=== PATIENT | male | born 1940 | race Caucasian/White ===

== ENCOUNTER 2018-05-10 05:19 | Inpatient (IN) | payer OTHER ==
[2018-05-10] VITALS (27 sets, daily range): BP systolic 89–180; BP diastolic 34–108
[~2018-05-10] VITALS: Ht 175.2 cm; Wt 80.5 kg
--- NOTE | ~2018-05-10 | EKG ---
[place], [place] ELECTROCARDIOGRAM REPORT NAME: KAYLYNN MANZANARES UNIT #: [id number] ROOM: [facility] DOCTOR: FAHEEM DRAFT REPORT BIRTHDATE: [birth year] [facility] Test Date: 2018-05-10 Test Time: 08:29:03 Pat Name: KAYLYNN MANZANARES Department: Room: [facility] Gender: M Charge Accounts Audit Clerk: Erika Cowan : 1940 Requested By: HARMEET FERRIS Order Number: [id number] Reading MD: David Mills MD Measurements Intervals [place] Rate: 63 P: 51 MA: 174 QRS: -23 QRSD: 85 T: 2 QT: 440 QTc: 451 Interpretive Statements Sinus rhythm Borderline left axis deviation Borderline T abnormalities, inferior leads No previous ECG available for comparison Electronically Signed On 05-10-2018 16:06:34 PST by David Mills MD CM:EKGRPT:ELECTROCARDIOGRAM REPORT [id number] HARMEET MAYEN DRAFT REPORT HARMEET FERRIS MD
--- NOTE | ~2018-05-10 | EKG ---
[place], [place] ELECTROCARDIOGRAM REPORT NAME: KAYLYNN MANZANARES UNIT #: [id number] ROOM: [facility] DOCTOR: FAHEEM DRAFT REPORT BIRTHDATE: [birth year] [facility] Test Date: 2018-05-10 Test Time: 05:20:50 Pat Name: KAYLYNN MANZANARES Department: Room: [facility] Gender: M Emergency Operator: ISH : 1940 Requested By: HARMEET FERRIS Order Number: [id number] Reading MD: Reid Shanks MD Measurements Intervals [place] Rate: 80 P: 81 IA: 167 QRS: -28 QRSD: 99 T: 73 QT: 418 QTc: 483 Interpretive Statements Sinus rhythm with sinus arrhythmia Probable left atrial enlargement Borderline left axis deviation Nonspecific ST-T changes Electronically Signed On 05-12-2018 21:12:18 PST by Reid Shanks MD CM:EKGRPT:ELECTROCARDIOGRAM REPORT 9 [id number] HARMEET FERRIS MD EPIPHANY DRAFT REPORT HARMEET FERRIS MD
--- NOTE | ~2018-05-10 | EKG ---
[place], [place] ELECTROCARDIOGRAM REPORT NAME: KAYLYNN MANZANARES UNIT #: [id number] ROOM: [facility] DOCTOR: FAHEEM DRAFT REPORT BIRTHDATE: [birth year] [facility] Test Date: 2018-05-10 Test Time: 15:50:35 Pat Name: KAYLYNN MANZANARES Department: Room: [place] [address] Gender: M Produce Runner: 18 : 1940 Requested By: MURPHY KAPOOR Order Number: [id number] Reading MD: Reid Shanks MD Measurements Intervals [place] Rate: 60 P: 46 WY: 164 QRS: -27 QRSD: 84 T: 8 QT: 441 QTc: 441 Interpretive Statements Sinus rhythm Borderline left axis deviation Borderline T abnormalities, lateral leads Compared to earlier ECG this date Lateral T-wave flattening is now present Electronically Signed On 05-12-2018 21:13:14 PST by Reid Shanks MD CM:EKGRPT:ELECTROCARDIOGRAM REPORT [id number] 12 MURPHY MAYEN DRAFT REPORT MURPHY KAPOOR MD
--- NOTE | ~2018-05-10 | EKG ---
[place], [place] ELECTROCARDIOGRAM REPORT NAME: KAYLYNN MANZANARES UNIT #: [id number] ROOM: [facility] DOCTOR: FAHEEM DRAFT REPORT BIRTHDATE: [birth year] [facility] Test Date: 2018-05-11 Test Time: 09:19:35 Pat Name: KAYLYNN MANZANARES Department: Room: [place] [address] Gender: M Director Strategic Planning: : 1940 Requested By: JACKIE LEONARD Order Number: [id number] Reading MD: Diogenes Keene MD Measurements Intervals [place] Rate: 60 P: 27 WY: 176 QRS: -24 QRSD: 85 T: 80 QT: 457 QTc: 457 Interpretive Statements Sinus rhythm Borderline left axis deviation Baseline wander in lead(s) II,III,aVF Compared to ECG 05/10/2018 11:27:17 No significant changes Electronically Signed On 05-13-2018 4:40:32 PST by Diogenes Keene MD CM:EKGRPT:ELECTROCARDIOGRAM REPORT [id number] JACKIE HUBBARD DRAFT REPORT JACKIE LEONARD DO
--- NOTE | ~2018-05-10 | EKG ---
[place], [place] ELECTROCARDIOGRAM REPORT NAME: KAYLYNN MANZANARES UNIT #: [id number] ROOM: [facility] DOCTOR: FAHEEM DRAFT REPORT BIRTHDATE: [birth year] [facility] Test Date: 2018-05-10 Test Time: 11:27:17 Pat Name: KAYLYNN MANZANARES Department: Room: [facility] Gender: M Caddymaster: Erika Cowan : 1940 Requested By: HARMEET FERRIS Order Number: [id number] Reading MD: David Mills MD Measurements Intervals [place] Rate: 69 P: 72 DE: 170 QRS: -26 QRSD: 89 T: 71 QT: 415 QTc: 445 Interpretive Statements Sinus rhythm Borderline left axis deviation Abnormal R-wave progression, late transition No previous ECG available for comparison Electronically Signed On 05-10-2018 16:07:36 PST by David Mills MD CM:EKGRPT:ELECTROCARDIOGRAM REPORT [id number] HARMEET MAYEN DRAFT REPORT HARMEET FERRIS MD
[~2018-05-10 05:19] MED LIST: HYDROCODONE BIT1 T11 PO; VITAMINS & MINE1 TAB PO
[2018-05-10 05:36] LABS: BASO # 0.1 10*3/uL (0.0-0.1); BASO % 0.9 % (0.0-1.0); EOS # 0.3 10*3/uL (0.0-0.4); EOS % 5.1 % (1.0-4.0); HEMOGLOBIN 14.2 g/dl (14.0-18.0); LYMPH # 1.8 10*3/uL (1.3-4.4); LYMPH % 27.4 % (27.0-41.0); MEAN CELL VOLUME 87.1 fl (80.0-94.0); MEAN CORPUSCULAR HGB 29.5 pg (27.0-31.0); MEAN CORPUSCULAR HGB CONC 33.8 g/dl (33.0-37.0); MEAN PLATELET VOLUME 9.5 fl (9.6-12.3); MONO # 0.8 10*3/uL (0.1-1.0); MONO % 11.6 % (3.0-9.0); NEUT # 3.5 10*3/uL (2.3-7.9); NEUT % 54.7 % (47.0-73.0); PLATELET COUNT AUTOMATED 226 10*3/uL (130-400); RED BLOOD COUNT 4.82 10*6/uL (4.50-5.90); WHITE BLOOD COUNT 6.5 10*3/uL (4.8-10.8)
[2018-05-10 05:46] LABS: ACT PARTIAL THROMBO TIME 22.4 SECONDS (20.8-31.5); INTERNATIONAL NORM RATIO 0.9 (2.0-3.5)
[2018-05-10 05:51] LABS: ALBUMIN 4.1 gm/dl (3.1-4.5); ALKALINE PHOSPHATASE 91 U/L (45-117); BUN 24 mg/dl (7-24); CHLORIDE 104 mmol/L (98-107); CREATININE 1.26 mg/dL (0.70-1.30); SGOT/AST 20 IU/L (3-35); SGPT/ALT 28 U/L (12-78); SODIUM 139 mmol/L (136-145); TOTAL PROTEIN 7.9 gm/dL (6.4-8.2)
[2018-05-10 05:52] LABS: TROPONIN I 0.031 ng/ml (<0.045)
[2018-05-10] MEDS ORDERED: FLOMAX0.4 MG PO (06:55)
--- NOTE | 2018-05-10 07:11 | NUR ---
A 77, admitted to ICCU, under the services of KAYLYNN Lakhani DO with a diagnosis of CHEST PAIN. Chief complaint is CHEST PAIN. Patient arrived via bed from ER. Monitor applied. Initial assessment completed. Vital signs taken and recorded. KAYLYNN LAKHANI DO notified of admission to the unit. Orders received. See assessment for past medical history, medications and allergies. Patient and/or family oriented to unit. [address] visitation policy reviewed. Clothing/patient valuable form completed. OC VASQUEZ
--- NOTE | 2018-05-10 08:44 | NUR ---
CALLED ANSWERING SERVICE REGARDING NEW PT CONSULT FOR DR VARNER. DR RAMIRES MARKETING COMMUNICATIONS LEADER. WAITING MARKETING COMMUNICATIONS LEADER BACK
--- NOTE | 2018-05-10 08:47 | NUR ---
DR RAMIRES CALLED AND I INFORMED HIM OF NEW PT CONSULT WELL CRITICAL ELEVATED TROPONIN 0.859. HE STATED HE WILL SEE PT THIS MORNING. NO NEW ORDERS.
--- NOTE | 2018-05-10 11:54 | NUR ---
CRITICAL LAB RECIEVED. TROPONIN 1.61. DR LEONARD NOTIFIED. WAITING YOUTH CARE WORKER BACK FROM DR. RAMIRES.
--- NOTE | 2018-05-10 12:00 | NUR ---
SPOKE TO DR RAMIRES REGARDING CRITICAL ELEVATED TROPONIN 1.61. I ALSO INFORMED HIM THAT PER DR MONCADA PT IS BEING STARTED ON A HEPARIN DRIP AND TRANSFERRED TO THE ICU. HE STATED HE WILL BE HERE WITHIN THE HOUR TO SEE THE PT.
--- NOTE | 2018-05-10 12:25 | NUR ---
RECEIVED PT FROM 5E VIA BED. PT AAOX3. RESP EASY. PT SLIGHTLY ANXIOUS AND TEARFUL. BP 176/80. HR 69 NSR POX 97% RA. PT C/O SLIGHT MIDSTERNAL HEAVINESS THAT INCREASES WITH PALPATION AND DEEP INSPIRATION. NO OTHER RADIATION OF HEAVINESS NOTED. IV HEPARIN GTT INFUSING PER ORDER. O2 2L NC APPLIED. PT UPDATED ON PLAN OF CARE. WILL CONTINUE TO MONITOR PT.
--- NOTE | 2018-05-10 12:40 | NUR ---
PT TAKEN TO THE ICU. REPORT GIVEN TO DESTINI SY
--- NOTE | 2018-05-10 13:50 | NUR ---
DR KAPOOR IN TO SEE PT. DR KAPOOR DID A BEDSIDE ECHO. IV NITRO GTT STARTED AT 10MCG PER ORDER. IV HEPARIN GTT CONTINUES.
--- NOTE | 2018-05-10 14:30 | NUR ---
IV ATIVAN GIVEN PER ORDER.
--- NOTE | 2018-05-10 15:00 | NUR ---
PT RESTING. EARLIER ATIVAN SEEMS EFFECTIVE FOR PT'S ANXIETY. PT FOR HEART CATH ON SATURDAY. PT'S QUESTIONS ANSWERED R/T PLAN OF CARE. I DID CALL PT'S SON, SARA, AND UPDATED HIM ON PT'S CONDITION AND PLAN OF CARE.
--- NOTE | 2018-05-10 16:02 | NUR ---
PT RESTING. VSS. HEPARIN AND NITRO GTT'S CONTINUE. PT DENIES COMPLAINTS OF CHEST PAIN OR PRESUURE AT THIS TIME. PT'S AT BEDSIDE. PT DECIDED HE WOULD GO TO THE [facility]. FOR HEART CATH ON SATURDAY. PT WOULD LIKE [facility] TO TRANSPORT.
--- NOTE | 2018-05-10 16:55 | NUR ---
PT'S BP 89/68. IV NITRO DECREASED TO 5MCG. WILL CONTINUE TO MONITOR.
--- NOTE | 2018-05-10 17:00 | NUR ---
REPEAT BP 102/67. WILL CONITNUE TO MONITOR PT.
--- NOTE | 2018-05-10 17:46 | NUR ---
DR KAPOOR HERE AND UPDATED ON PT'S SBP 90'S AND THAT IV NITRO D/C'D AT THIS TIME. DR KAPOOR OK'D NITRO GTT D/C'D AND ORDERED PT TO HAVE NITROPASTE Q6 HOURS IF SBP >100.
--- NOTE | 2018-05-10 20:13 | NUR ---
1944 RESTING IN BED TALKING WITH VISITORS. ALERT. VISITORS AT BEDSIDE. DENIES C/O'S CHEST PAIN OR DISCOMFORT AT THIS TIME. HEPARIN GTT CONT. PULSE OX 98% ON 2L. RESPIRATIONS EASY. CALL LIGHT IN REACH. REFUSED TEDS. NO DISTRESS NOTED. NO PEDAL EDEMA.
--- NOTE | 2018-05-10 22:08 | NUR ---
2100 RESTING IN BED WITH EYES CLOSED. APPEARS TO BE SLEEPING.
[2018-05-11] VITALS: BP 115/60
--- NOTE | 2018-05-11 00:23 | NUR ---
REMAINS WITHOUT C/O'S. HEPARIN GTT CONT. LAB HERE TO DRAW APTT. NITRO PASTE APPLIED. BP IS 115/60. WILL CONT TO MONITOR.
[2018-05-11 04:00] VITALS: BP 100/50
--- NOTE | 2018-05-11 06:07 | NUR ---
SLEPT WELL THIS SHIFT. REMAINS WITHOUT C/O'S CHEST PAIN. HEPARIN GTT CONT TO INFUSE WELL. CONDITION GUARDED.
[2018-05-11 07:29] LABS: FREE T4 0.94 ng/dl (0.76-1.46)
--- NOTE | 2018-05-11 07:30 | NUR ---
PT AAOX3. RESP EASY. VSS. PT DENIES C/O CHEST PAIN OR PRESSURE. IV HEPARIN GTT CONTINUES PER ORDER. #20 GAUGE HL STARTED IN RIGHT ARM. PT TOLERATED PROCEDURE WELL. PT WASHED UP AT BEDSIDE. PT DENIES COMPLAINTS AT THIS TIME. NO ACUTE DISTRESS NOTED. WILL CONTINUE TO MONITOR PT.
[2018-05-11 07:35] LABS: THYROID STIM HORMONE (HS) 0.593 uIU/ml (0.358-4.75)
[2018-05-11 07:39] LABS: TROPONIN I 3.23 ng/ml (<0.045)
[2018-05-11 07:48] LABS: BASO % 0.6 % (0.0-1.0); EOS # 0.3 10*3/uL (0.0-0.4); EOS % 5.4 % (1.0-4.0); LYMPH # 1.3 10*3/uL (1.3-4.4); LYMPH % 23.9 % (27.0-41.0); MEAN CELL VOLUME 88.6 fl (80.0-94.0); MEAN CORPUSCULAR HGB 29.1 pg (27.0-31.0); MEAN CORPUSCULAR HGB CONC 32.9 g/dl (33.0-37.0); MEAN PLATELET VOLUME 9.8 fl (9.6-12.3); MONO # 0.6 10*3/uL (0.1-1.0); MONO % 11.6 % (3.0-9.0); NEUT # 3.1 10*3/uL (2.3-7.9); NEUT % 58.3 % (47.0-73.0); PLATELET COUNT AUTOMATED 189 10*3/uL (130-400); RED BLOOD COUNT 4.05 10*6/uL (4.50-5.90); RED CELL DISTRI WIDTH 13.1 % (0-14.5); WHITE BLOOD COUNT 5.4 10*3/uL (4.8-10.8)
[2018-05-11 07:50] LABS: HEMATOCRIT 35.9 % (42.0-52.0); HEMOGLOBIN 11.8 g/dl (14.0-18.0)
[2018-05-11 07:51] LABS: BUN 24 mg/dl (7-24); CHLORIDE 110 mmol/L (98-107); CREATININE 1.03 mg/dL (0.70-1.30); POTASSIUM 4.1 mmol/L (3.5-5.1); SODIUM 143 mmol/L (136-145)
[2018-05-11 08:00] VITALS: BP 118/70
[2018-05-11 08:38] LABS: CHOLESTEROL 159 mg/dL (<200); HDL CHOLESTEROL 52 mg/dl (40-60); LDL CHOLESTEROL 90 mg/dL (9-159); TRIGLYCERIDES 85 mg/dl (<150); VLDL CHOLESTEROL 17 mg/dL (6-40)
--- NOTE | 2018-05-11 08:52 | NUR ---
DR LEONARD MADE AWARE AND MESSAGE LEFT WITH DR KAPOOR EARLIER R/T TROP. LEVEL.
--- NOTE | 2018-05-11 10:58 | NUR ---
DR NORTON IN TO SEE PT.
[2018-05-11 12:00] VITALS: BP 114/77
--- NOTE | 2018-05-11 12:17 | NUR ---
PT HAD A 9 BEAT RUN OF V-TACH. PT DID FEEL NEAR SYNCOPAL. DR KAPOOR NOTIFIED. 25MG LOPRESSOR ORDERED X 1. DR LEONARD NOTIFIED AND UP TO SPEAK WITH PT AND PT'S FAMILY.
--- NOTE | 2018-05-11 12:40 | NUR ---
ATIVAN 0.25MG PO GIVEN FOR PT'S ANXIETY. PT DID NOT WANT TO TAKE THE ORDERED DOSE OF 0.5MG BECAUSE HE SAID "IT MADE ME TOO LOOPY LAST NIGHT" DR LEONARD IN PT'S ROOM WHEN DISCUSSION ABOUT DOSE WAS GOING ON. HE OK'D 0.25MG DOSE.
--- NOTE | 2018-05-11 13:30 | NUR ---
PT RESRING. EARLIER ATIVAN EFFECTIVE.
--- NOTE | 2018-05-11 14:05 | NUR ---
DR KAPOOR IN TO SEE PT. UPDATED HIM ON PT'S CONDITION AND PLAN OF CARE.
--- NOTE | 2018-05-11 14:40 | NUR ---
MEDICATED PTWITH 0.25MG ATIVAN FOR C/O ANXIETY. DR MARQUEZ IN PT'S ROOM WHEN DISCUSSION OF ONLY TAKING 1/2 OF ATIVAN DOSE OCCURED AND HE AGREED WITH TREATMENT.
[2018-05-11 16:00] VITALS: BP 114/64
[2018-05-11 20:00] VITALS: BP 132/77
--- NOTE | 2018-05-11 20:00 | NUR ---
PT RESTING IN BED VISITING WITH FAMILY. A&OX3, PLEASANT AND COOPERATIVE. RESP NONLAOBORED. NO ACUTE DISTRESS NOTED. NO COMLAINTS VOICED. IV PATENT AND HEPARIN INFUSING ORDERED WITHOUT DIFFICULTY.
--- NOTE | 2018-05-11 21:10 | NUR ---
MEDICATED WITH RESTORIL PER PRN ORDER FOR C/O INSOMNIA.
[2018-05-12] VITALS: BP 106/68
[2018-05-12 04:00] VITALS: BP 107/71
[2018-05-12 05:10] LABS: BASO # 0.1 10*3/uL (0.0-0.1); BASO % 1.1 % (0.0-1.0); EOS # 0.3 10*3/uL (0.0-0.4); EOS % 6.8 % (1.0-4.0); HEMATOCRIT 36.5 % (42.0-52.0); LYMPH # 1.3 10*3/uL (1.3-4.4); LYMPH % 26.7 % (27.0-41.0); MEAN CELL VOLUME 89.5 fl (80.0-94.0); MEAN CORPUSCULAR HGB 29.4 pg (27.0-31.0); MEAN CORPUSCULAR HGB CONC 32.9 g/dl (33.0-37.0); MEAN PLATELET VOLUME 9.3 fl (9.6-12.3); MONO # 0.6 10*3/uL (0.1-1.0); MONO % 13.3 % (3.0-9.0); NEUT # 2.4 10*3/uL (2.3-7.9); NEUT % 51.5 % (47.0-73.0); PLATELET COUNT AUTOMATED 176 10*3/uL (130-400); RED BLOOD COUNT 4.08 10*6/uL (4.50-5.90); WHITE BLOOD COUNT 4.7 10*3/uL (4.8-10.8)
[2018-05-12 05:29] LABS: ALBUMIN 3.2 gm/dl (3.1-4.5); ALKALINE PHOSPHATASE 73 U/L (45-117); BUN 20 mg/dl (7-24); CHLORIDE 111 mmol/L (98-107); CREATININE 1.05 mg/dL (0.70-1.30); SGOT/AST 20 IU/L (3-35); SGPT/ALT 20 U/L (12-78); SODIUM 144 mmol/L (136-145); TOTAL PROTEIN 6.4 gm/dL (6.4-8.2)
--- NOTE | 2018-05-12 08:00 | NUR ---
PT DC TO [facility] VIA [facility]BULANCE WITH FAMILY AT SIDE. PT STABLE AT THIS TIME.
== END 2018-05-12 08:00 | disposition short-term general hospital (02) | DRG 281 ==
LOC: ED 05:19 → ICCU 06:33 → EDHOLD 06:33 → 5E 06:55 → ICCU 12:14
PROVIDERS: Emergency Medicine Emergency Medical Services; Family Medicine; Internal Medicine Cardiovascular Disease; ADMIT Emergency Medicine
DX: I21.4 Non-ST elevation (NSTEMI) myocardial infarction (principal); I47.1 Supraventricular tachycardia; C61 Malignant neoplasm of prostate; E83.41 Hypermagnesemia; I10 Essential (primary) hypertension; F41.9 Anxiety disorder, unspecified; I20.9 Angina pectoris, unspecified; Z79.899 Other long term (current) drug therapy; Z79.82 Long term (current) use of aspirin

== ENCOUNTER → 2018-09-16 | Outpatient (CLI) | payer OTHER ==
[~2018-09-16] MED LIST changes: +FLOMAX0.4 MG PO
== END | disposition home or self-care (01) ==
LOC: CARD 01:27
DX: I25.10 Atherosclerotic heart disease of native coronary artery without angina pectoris (principal); I21.4 Non-ST elevation (NSTEMI) myocardial infarction

== ENCOUNTER → 2019-05-25 | Outpatient (CLI) | payer OTHER ==
[2019-05-25 09:48] LABS: ALBUMIN 3.8 gm/dl (3.1-4.5); BUN 18 mg/dl (7-24); CHLORIDE 108 mmol/L (98-107); POTASSIUM 3.9 mmol/L (3.5-5.1); SODIUM 141 mmol/L (136-145)
[2019-05-25 09:52] LABS: ALKALINE PHOSPHATASE 72 U/L (45-117); CHOLESTEROL 114 mg/dL (<200); CREATININE 1.07 mg/dL (0.70-1.30); HDL CHOLESTEROL 52 mg/dl (40-60); LDL CHOLESTEROL 41 mg/dL (9-159); SGOT/AST 25 IU/L (3-35); SGPT/ALT 32 U/L (12-78); TOTAL PROTEIN 7.1 gm/dL (6.4-8.2); TRIGLYCERIDES 106 mg/dl (<150); VLDL CHOLESTEROL 21 mg/dL (6-40)
== END ==
LOC: LAB 09:01
PROVIDERS: Internal Medicine Cardiovascular Disease
DX: I21.4 Non-ST elevation (NSTEMI) myocardial infarction (principal)

== ENCOUNTER → 2021-07-14 | Outpatient (CLI) | payer OTHER | END | disposition home or self-care (01) | LOC: RAD 14:07 | PROVIDERS: ATTEND Family Medicine | DX: R59.1 Generalized enlarged lymph nodes (principal); C61 Malignant neoplasm of prostate ==

== ENCOUNTER → 2021-07-24 | Outpatient (CLI) | payer OTHER | END | disposition home or self-care (01) | LOC: US 00:36 | PROVIDERS: ATTEND Family Medicine | DX: R59.0 Localized enlarged lymph nodes (principal) ==

== ENCOUNTER 2021-11-13 14:37 | Emergency (ER) | payer OTHER ==
[~2021-11-13] VITALS: Ht 175.2 cm; Wt 81.6 kg
[2021-11-13] MEDS ORDERED: ASPIRIN ADULT L81 M1 PO (14:57)
[2021-11-13 15:05] LABS: BASO % 0.4 % (0.0-1.0); EOS # 0.3 10*3/uL (0.0-0.4); EOS % 2.8 % (1.0-4.0); HEMATOCRIT 39.1 % (42.0-52.0); LYMPH % 21.2 % (27.0-41.0); MEAN CELL VOLUME 89.1 fl (80.0-94.0); MEAN CORPUSCULAR HGB 30.3 pg (27.0-31.0); MEAN PLATELET VOLUME 9.3 fl (9.6-12.3); MONO # 0.9 10*3/uL (0.1-1.0); MONO % 9.2 % (3.0-9.0); NEUT # 6.3 10*3/uL (2.3-7.9); NEUT % 66.1 % (47.0-73.0); PLATELET COUNT AUTOMATED 201 10*3/uL (130-400); RED BLOOD COUNT 4.39 10*6/uL (4.50-5.90); RED CELL DISTRI WIDTH 13.1 % (0-14.5); WHITE BLOOD COUNT 9.6 10*3/uL (4.8-10.8)
[2021-11-13 15:17] LABS: ACT PARTIAL THROMBO TIME 25.1 SECONDS (20.0-32.1)
[2021-11-13 15:20] LABS: ALKALINE PHOSPHATASE 59 U/L (45-117); BUN 20 mg/dl (7-24); CHLORIDE 107 mmol/L (98-107); CREATININE 0.98 mg/dL (0.70-1.30); POTASSIUM 4.1 mmol/L (3.5-5.1); SGOT/AST 19 IU/L (3-35); SGPT/ALT 23 U/L (12-78); SODIUM 137 mmol/L (136-145); TOTAL PROTEIN 7.2 gm/dL (6.4-8.2)
== END 2021-11-13 18:10 | disposition home or self-care (01) ==
LOC: ED 14:37
PROVIDERS: Emergency Medicine
DX: K21.9 Gastro-esophageal reflux disease without esophagitis (principal); R07.89 Other chest pain; K22.4 Dyskinesia of esophagus; I25.2 Old myocardial infarction; I10 Essential (primary) hypertension; Z95.5 Presence of coronary angioplasty implant and graft; Z79.899 Other long term (current) drug therapy; Z79.82 Long term (current) use of aspirin

== ENCOUNTER → 2021-12-04 | Outpatient (CLI) | payer OTHER ==
[~2021-12-04] MED LIST changes: +ASPIRIN ADULT L81 M1 PO
[2021-12-04 13:15] LABS: ALKALINE PHOSPHATASE 56 U/L (45-117); BUN 20 mg/dl (7-24); CHLORIDE 109 mmol/L (98-107); CHOLESTEROL 215 mg/dL (<200); CREATININE 0.98 mg/dL (0.70-1.30); LDL CHOLESTEROL 140 mg/dL (9-159); POTASSIUM 4.1 mmol/L (3.5-5.1); SGOT/AST 19 IU/L (3-35); SGPT/ALT 26 U/L (12-78); SODIUM 140 mmol/L (136-145); TOTAL PROTEIN 7.3 gm/dL (6.4-8.2); TRIGLYCERIDES 133 mg/dl (<150)
== END ==
LOC: LAB 10:22
PROVIDERS: ATTEND Internal Medicine Cardiovascular Disease
DX: E55.9 Vitamin D deficiency, unspecified (principal); E78.00 Pure hypercholesterolemia, unspecified

== ENCOUNTER → 2022-04-13 | Outpatient (CLI) | payer OTHER ==
[2022-04-13 10:52] LABS: TESTOSTERONE, TOTAL 84 ng/dL (113-882)
== END | disposition home or self-care (01) ==
LOC: LAB 01:58
PROVIDERS: ATTEND Urology
DX: C61 Malignant neoplasm of prostate (principal)

== ENCOUNTER 2022-05-13 12:42 | Emergency (ER) | payer OTHER | END 2022-05-13 14:30 | disposition home or self-care (01) | LOC: ED 12:42 | DX: S43.401A Unspecified sprain of right shoulder joint, initial encounter (principal); Z98.890 Other specified postprocedural states; W00.2XXA Other fall from one level to another due to ice and snow, initial encounter; Y93.89 Activity, other specified; Y92.89 Other specified places as the place of occurrence of the external cause; Y99.8 Other external cause status ==

== ENCOUNTER → 2022-08-14 | Outpatient (CLI) | payer OTHER | END | disposition home or self-care (01) | LOC: LAB 12:06 | PROVIDERS: ATTEND Urology | DX: C61 Malignant neoplasm of prostate (principal) ==

== ENCOUNTER → 2023-02-13 | Outpatient (CLI) | payer OTHER | END | disposition home or self-care (01) | LOC: LAB 14:56 | PROVIDERS: ATTEND Nurse Practitioner Family | DX: C61 Malignant neoplasm of prostate (principal) ==

== ENCOUNTER → 2023-08-27 | Outpatient (CLI) | payer OTHER | END | disposition home or self-care (01) | LOC: LAB 11:51 | PROVIDERS: ATTEND Urology | DX: C61 Malignant neoplasm of prostate (principal) ==

== ENCOUNTER 2024-03-14 18:03 | Emergency (ER) | payer OTHER ==
[~2024-03-14] VITALS: Ht 177.8 cm; Wt 88.5 kg
[2024-03-14] MEDS ORDERED: ROSUVASTATIN CAL5 MG PO (18:17)
[2024-03-14] MEDS ORDERED: Acetaminophen/Hydrocodone 5 MG/325 MG TABLET PO ONE (19:00)
[2024-03-14] MEDS ORDERED: ETOMIDATE 20 MG/10 ML VIAL IV ONE (19:35)
[2024-03-14] MEDS ORDERED: PERCOCET 5-3251 EACH PO (19:54)
[2024-03-14] MEDS ORDERED: PREDNISONE20 M1 PO (19:54)
[2024-03-14] MEDS ORDERED: Acetaminophen/Oxycodone 5 MG/325 MG TABLET PO ONE (20:00)
[2024-03-14] MEDS ORDERED: methylPREDNISolone sod succ 125 MG VIAL IM ONE (20:00)
== END 2024-03-14 19:59 | disposition home or self-care (01) ==
LOC: ED 18:03
DX: M19.012 Primary osteoarthritis, left shoulder (principal); K21.9 Gastro-esophageal reflux disease without esophagitis; E83.41 Hypermagnesemia; F41.9 Anxiety disorder, unspecified; I10 Essential (primary) hypertension; Z98.890 Other specified postprocedural states

== ENCOUNTER → 2024-03-16 | Outpatient (CLI) | payer OTHER ==
[~2024-03-16] MED LIST changes: +PERCOCET 5-3251 EACH PO; +PREDNISONE20 M1 PO; +ROSUVASTATIN CAL5 MG PO
== END | disposition home or self-care (01) ==
LOC: LAB 15:22
PROVIDERS: ATTEND Urology
DX: C61 Malignant neoplasm of prostate (principal)

== ENCOUNTER → 2024-05-11 | Outpatient (CLI) | payer OTHER ==
[2024-05-11 10:18] LABS: BASO # 0.1 10*3/uL (0.0-0.1); BASO % 0.9 % (0.0-1.0); EOS # 0.3 10*3/uL (0.0-0.4); EOS % 4.7 % (1.0-4.0); HEMATOCRIT 39.7 % (42.0-52.0); MEAN CELL VOLUME 92.8 fl (80.0-94.0); MEAN CORPUSCULAR HGB 29.7 pg (27.0-31.0); MEAN PLATELET VOLUME 9.3 fl (9.6-12.3); MONO # 0.7 10*3/uL (0.1-1.0); MONO % 10.3 % (3.0-9.0); NEUT # 4.2 10*3/uL (2.3-7.9); NEUT % 59.9 % (47.0-73.0); PLATELET COUNT AUTOMATED 221 10*3/uL (130-400); RED BLOOD COUNT 4.28 10*6/uL (4.50-5.90); RED CELL DISTRI WIDTH 13.4 % (0-14.5)
[2024-05-11 10:21] LABS: BILIRUBIN Negative (Negative); BLOOD Negative (Negative); CLARITY Clear (Clear); COLOR Yellow (Yellow); GLUCOSE Negative (Negative); KETONE Negative (Negative); LEUKO ESTERASE Negative (Negative); NITRITE Negative (Negative); UROBILINOGEN 0.2 E.U./dl (0.0-1.0)
[2024-05-11 10:26] LABS: ACT PARTIAL THROMBO TIME 23.6 SECONDS (20.0-32.1)
[2024-05-11 11:34] LABS: ALKALINE PHOSPHATASE 62 U/L (46-116); BUN 18 mg/dl (9-23); CHLORIDE 102 mmol/L (98-107); POTASSIUM 4.6 mmol/L (3.4-5.1); SGPT/ALT 17 U/L (5-49); TOTAL PROTEIN 7.1 gm/dL (6.0-8.0)
== END | disposition home or self-care (01) ==
LOC: LAB 09:38
PROVIDERS: ATTEND Orthopaedic Surgery
DX: Z01.818 Encounter for other preprocedural examination (principal); Z98.890 Other specified postprocedural states

== ENCOUNTER → 2024-06-23 | Outpatient (CLI) | payer OTHER | END | disposition home or self-care (01) | LOC: LAB 11:00 | PROVIDERS: ATTEND Urology | DX: C61 Malignant neoplasm of prostate (principal) ==

== ENCOUNTER → 2024-08-31 | Day surgery (SDC) | payer OTHER ==
[~2024-08-31] VITALS: Ht 170.1 cm; Wt 90.7 kg
[~2024-08-31] MED LIST changes: +IRON325 M1 PO; +Lidocaine Hydrochloride 5 ML VIAL IV ONE; +METOPROLOL SUCC50 M1 PO; +PROPOFOL 200 MG/20 ML VIAL IV ONE; +Phenylephrine Hydrochloride 1 MG/10 ML SYRINGE IV ONE; +SODIUM CHLORIDE 0.9% 500 ML IV ONE; +TOPROL XL50 M1 PO
[2024-08-31 08:00] VITALS: BP 163/80
[2024-08-31 09:29] VITALS: BP 143/61
[2024-08-31 09:44] VITALS: BP 156/76
[2024-08-31 09:59] VITALS: BP 168/84
== END | disposition home or self-care (01) ==
LOC: SDC 08-27 08:45
PROVIDERS: ATTEND Surgery
DX: D50.9 Iron deficiency anemia, unspecified (principal); K64.8 Other hemorrhoids; K21.9 Gastro-esophageal reflux disease without esophagitis; I10 Essential (primary) hypertension; I25.10 Atherosclerotic heart disease of native coronary artery without angina pectoris; I25.2 Old myocardial infarction; Z95.818 Presence of other cardiac implants and grafts; Z96.651 Presence of right artificial knee joint; Z79.82 Long term (current) use of aspirin; Z79.899 Other long term (current) drug therapy; Z87.891 Personal history of nicotine dependence; Z85.46 Personal history of malignant neoplasm of prostate; Z98.890 Other specified postprocedural states; Z83.3 Family history of diabetes mellitus

== ENCOUNTER → 2024-10-19 | Outpatient (CLI) | payer OTHER ==
[~2024-10-19] MED LIST changes: -Lidocaine Hydrochloride 5 ML VIAL IV ONE; -PROPOFOL 200 MG/20 ML VIAL IV ONE; -Phenylephrine Hydrochloride 1 MG/10 ML SYRINGE IV ONE; -SODIUM CHLORIDE 0.9% 500 ML IV ONE
== END | disposition home or self-care (01) ==
LOC: LAB 11:12
PROVIDERS: ATTEND Urology
DX: C61 Malignant neoplasm of prostate (principal)

== ENCOUNTER 2024-11-29 07:59 | Emergency (ER) | payer OTHER ==
[~2024-11-29] VITALS: Ht 175.2 cm; Wt 90.7 kg
[2024-11-29] MEDS ORDERED: ARTHRITIS PILL (08:16)
[2024-11-29] MEDS ORDERED: ROSUVASTATIN CA10 MG PO (08:17)
[2024-11-29] MEDS ORDERED: ASPIRIN 325 MG ENTERIC COATED PO ONE (08:20)
[2024-11-29] MEDS ORDERED: NITROGLYCERIN 1 IN PACKET T ONE (08:20)
[2024-11-29] MEDS ORDERED: Ondansetron Hydrochloride 4 MG/2 ML VIAL IV ONE (08:20)
[2024-11-29 08:34] LABS: BASO # 0.0 10*3/uL (0.0-0.1); BASO % 0.4 % (0.0-1.0); EOS # 0.2 10*3/uL (0.0-0.4); EOS % 2.6 % (1.0-4.0); MEAN CELL VOLUME 92.2 fl (80.0-94.0); MEAN CORPUSCULAR HGB 30.0 pg (27.0-31.0); MEAN PLATELET VOLUME 8.7 fl (9.6-12.3); MONO # 0.8 10*3/uL (0.1-1.0); MONO % 11.1 % (3.0-9.0); NEUT # 5.0 10*3/uL (2.3-7.9); NEUT % 68.5 % (47.0-73.0); NUCLEATED RED BLOOD CELL 0.0 % (0.0-0.0); NUCLEATED RED BLOOD CELL 0.0 10*3/uL (0.0-0.0); PLATELET COUNT AUTOMATED 300 10*3/uL (130-400); RED CELL DISTRI WIDTH 15.7 % (0-14.5)
[2024-11-29 09:00] LABS: BUN 16 mg/dl (9-23); CPK 57 U/L (34-171); SGPT/ALT 16 U/L (5-49)
[2024-11-29] MEDS ORDERED: MELOXICAM15 MG PO (09:38)
[2024-11-29] MEDS ORDERED: COZAAR25 M1 PO (11:37)
== END 2024-11-29 13:48 | disposition home or self-care (01) ==
LOC: ED 07:59
PROVIDERS: Emergency Medicine
DX: R07.89 Other chest pain (principal); D50.9 Iron deficiency anemia, unspecified; I10 Essential (primary) hypertension

== ENCOUNTER → 2025-02-08 | Outpatient (CLI) | payer OTHER ==
[~2025-02-08] MED LIST changes: +ARTHRITIS PILL; +COZAAR25 M1 PO; +MELOXICAM15 MG PO; +METFORMIN HCL500 M2 PO; +ROSUVASTATIN CA10 MG PO
== END | disposition home or self-care (01) ==
LOC: MRI 00:21
PROVIDERS: ATTEND Orthopaedic Surgery
DX: S83.92XA Sprain of unspecified site of left knee, initial encounter (principal); M71.22 Synovial cyst of popliteal space [Baker], left knee; M17.12 Unilateral primary osteoarthritis, left knee; M25.862 Other specified joint disorders, left knee; R93.7 Abnormal findings on diagnostic imaging of other parts of musculoskeletal system; R60.0 Localized edema; X58.XXXA Exposure to other specified factors, initial encounter; Y93.89 Activity, other specified; Y92.89 Other specified places as the place of occurrence of the external cause; Y99.8 Other external cause status

== ENCOUNTER → 2025-02-15 | Day surgery (SDC) | payer OTHER ==
[~2025-02-15] VITALS: Ht 176.5 cm; Wt 82.6 kg
[~2025-02-15] MED LIST changes: +Lactated Ringer's Solution 1,000 ML IV ONE; +Lactated Ringer's Solution 1,000 ML IV SCH; +Lidocaine Hydrochloride 5 ML VIAL IV ONE; +PANTOPRAZOLE SO40 MG PO; +PROPOFOL 200 MG/20 ML VIAL IV ONE
[2025-02-15 07:23] VITALS: BP 148/85
[2025-02-15 08:42] VITALS: BP 171/96
[2025-02-15 08:57] VITALS: BP 175/99
[2025-02-15 09:10] VITALS: BP 166/94
== END | disposition home or self-care (01) ==
LOC: SDC 02-11 08:00
PROVIDERS: ATTEND Surgery
DX: D64.9 Anemia, unspecified (principal); K29.50 Unspecified chronic gastritis without bleeding; K44.9 Diaphragmatic hernia without obstruction or gangrene; K25.9 Gastric ulcer, unspecified as acute or chronic, without hemorrhage or perforation; K22.10 Ulcer of esophagus without bleeding; K21.9 Gastro-esophageal reflux disease without esophagitis; I10 Essential (primary) hypertension; F41.9 Anxiety disorder, unspecified; Z98.890 Other specified postprocedural states; Z79.899 Other long term (current) drug therapy

== ENCOUNTER → 2025-03-23 | Outpatient (CLI) | payer OTHER ==
[~2025-03-23] MED LIST changes: -Lactated Ringer's Solution 1,000 ML IV ONE; -Lactated Ringer's Solution 1,000 ML IV SCH; -Lidocaine Hydrochloride 5 ML VIAL IV ONE; -PROPOFOL 200 MG/20 ML VIAL IV ONE
== END | disposition home or self-care (01) ==
LOC: LAB 09:42
PROVIDERS: ATTEND Surgery
DX: D64.9 Anemia, unspecified (principal)

== ENCOUNTER → 2025-03-24 | Outpatient (CLI) | payer OTHER ==
[~2025-03-24] MED LIST changes: +IOHEXOL 300 MG/ML 100 ML VIAL IV ONE
== END | disposition home or self-care (01) ==
LOC: CT 01:24
PROVIDERS: ATTEND Surgery
DX: K42.9 Umbilical hernia without obstruction or gangrene (principal); K44.9 Diaphragmatic hernia without obstruction or gangrene; K21.9 Gastro-esophageal reflux disease without esophagitis; N28.1 Cyst of kidney, acquired; D64.9 Anemia, unspecified; J98.11 Atelectasis; J84.10 Pulmonary fibrosis, unspecified; R91.1 Solitary pulmonary nodule; M81.0 Age-related osteoporosis without current pathological fracture; M47.817 Spondylosis without myelopathy or radiculopathy, lumbosacral region